=== PATIENT | male | born 1960 ===

== ENCOUNTER 2016-10-10 14:47 | Observation (INO) | payer MEDICAID ==
--- NOTE | 2016-10-10 15:33 | ED PDOC ---
HPI: Chest Pain Time Seen by Provider: 10/10/16 15:05 Chief Complaint (Nursing): Chest Pain Chief Complaint (Provider): Chest pain History Per: Patient History/Exam Limitations: no limitations Onset/Duration Of Symptoms: Days (5) Current Symptoms Are (Timing): Still Present Severity: Moderate Quality: "Pain" Additional History Per: Patient Additional Complaint(s): The pt is a 56yo male with PMHx of DM, presents to the ED for evaluation of gradual onset chest pain, persistent for the past 5 days with some waxing and waning episodes. Pt reports the pain is located primarily on his left chest but at times radiates to his back. He reports noticing his pain worsens when getting up from a kneeling, head down position after he is done with his prayers. pt denies any nausea, lightheadedness, and fatigue. Additionally reports 15 mins [employer], pt sneezed after which his chest pain worsened. Pt additionally reports minor cough and rhinorrhea which he attributes to his seasonal allergies. Pt currently denies any other medical complaints. PCP: Dr. Dylan Conteh Past Medical History Reviewed: Historical Data, Nursing Documentation, Vital Signs Vital Signs: Last Vital Signs Temp 98.6 F 10/10/16 14:59 Pulse 85 10/10/16 14:59 Resp 18 10/10/16 14:59 BP 116/68 10/10/16 15:59 Pulse Ox 97 10/10/16 15:42 - Medical History PMH: No Chronic Diseases - Surgical History Surgical History: No Surg Hx - Family History Family History: States: Diabetes - Living Arrangements Living Arrangements: With Family - Social History Current smoker - smoking cessation education provided: No Alcohol: None Drugs: Denies - Home Medications Home Medications: Ambulatory Orders Medication Instructions Recorded Metformin Hydrochloride/Mary 1 tab PO BID 03/19/15 [Janumet 500 mg-50 mg] GlipiZIDE [Glucotrol] 1 tab PO DAILY 10/10/16 - Allergies Allergies/Adverse Reactions: Allergies Allergy/AdvReac Type Severity Reaction Status Date / Time No Known Allergies Allergy Verified 10/10/16 14:50 Review of Systems ROS Statement: Except As Marked, All Systems Reviewed And Found Negative Constitutional: Negative for: Other (fatigue) Cardiovascular: Positive for: Chest Pain Respiratory: Positive for: Cough Gastrointestinal: Negative for: Nausea Neurological: Negative for: Other (lightheadedness) Physical Exam - Reviewed Nursing Documentation Reviewed: Yes Vital Signs Reviewed: Yes - Physical Exam Appears: Positive for: Well, Non-toxic, No Acute Distress Head Exam: Positive for: ATRAUMATIC, NORMAL INSPECTION, NORMOCEPHALIC Skin: Positive for: Normal Color Eye Exam: Positive for: Normal appearance Neck: Positive for: Normal, Supple Cardiovascular/Chest: Positive for: Regular Rate, Rhythm. Negative for: Chest Non Tender (mild, reproducible left anterior chest wall tenderness.) Respiratory: Positive for: Normal Breath Sounds. Negative for: Respiratory Distress Gastrointestinal/Abdominal: Positive for: Normal Exam, Soft Back: Positive for: Normal Inspection Extremity: Positive for: Normal ROM Neurologic/Psych: Positive for: Alert, Oriented - Laboratory Results Result Diagrams: 10/10/16 15:20 10/10/16 15:20 - ECG O2 Sat by Pulse Oximetry: 97 (RA) Pulse Ox Interpretation: Normal Medical Decision Making Medical Decision Making: Time: 1515 Impression: Chest pain Pt with CP and CAD risk factors. Needs hospitalization for serial enzymes to r/ o ACS, pending ER workup Differential: ACS; PE; Costochondritis; pneumothroax; penumonia; dissection Plan: -- Bloodwork -- CXR -- Reassess Accession No. : [id number] Patient Name / ID : CALVIN CARREON / [id number] Exam Date : 10/10/2016 17:55:32 ( Approved ) Study Comment : Sex / Age : M / 56Y Creator : GILSON COATES Dictator : Pm Head Cook : Furnishings Conservator : GILSON COATES Approver2 : Report Date : 10/10/2016 18:30:00 My Comment : [facility] Division of Radiology [address] [place] [address] Tel. no. Patient Name: LAURI SIMPSON Pt. Address: [address] [place] [address] Rec #: [id number] [place] [address]: Gatito SANCHEZ, Maxine Scott Pt HOME Order Location: [facility]EL : 1960 Male Age: 56 Order #: [id number] Reason for exam: chest pain radiating to back CT Scan ANGIOGRAPHY DISECTION PROTOCOL Exam Date: 10/10/16 This imaging exam was performed at [facility] EXAM: CT Angiography Chest With Intravenous Contrast CLINICAL HISTORY: 56 years old, male; Signs and symptoms; Other: Cp to back; Angina; Additional info: Chest pain radiating to back TECHNIQUE: Axial computed tomographic angiography images of the chest with intravenous contrast using pulmonary embolism protocol. This CT exam was performed using one or more of the following dose reduction techniques: automated exposure control, adjustment of the mA and/or kV according to patient size, and/or use of iterative reconstruction technique. MIP reconstructed images were created and reviewed. Coronal and sagittal reformatted images were created and reviewed. CONTRAST: 100 mL of [id number] administered intravenously. COMPARISON: There are no prior studies for comparison. FINDINGS: Artifacts: Motion artifact degrades image quality. Heart, aorta and Pulmonary arteries: The heart is mildly enlarged. There is no pericardial effusion. Pulmonary vessels are unremarkable. Technique limits evaluation of peripheral pulmonary arteries.There is no aneurysm or dissection. There is perfusion of the 3 arch vessels. There are calcifications in the arch. Lungs and pleural spaces: Trachea and main bronchi are patent.There is no pneumothorax. There is no focal consolidation. There are no pleural effusions. There is minimal atelectasis and scarring at the lung bases. Mediastinum: There is fatty infiltration of the mediastinum. There is are no pathologically enlarged mediastinal or hilar nodes. Esophagus is unremarkable. Thyroid: Thyroid is unremarkable Bones/joints: There are degenerative changes in the osseus structures. Soft tissues: unremarkable . Upper abdomen: Refer to following report for abdominal findings IMPRESSION: Mild cardiomegaly and atherosclerotic disease, no thoracic aortic aneurysm or dissection Additional findings as described above. EXAM: CT Abdomen With Intravenous Contrast CLINICAL HISTORY: 56 years old, male; Signs and symptoms; Other: Cp to back; Angina; Additional info: Chest pain radiating to back TECHNIQUE: Axial computed tomography images of the abdomen with intravenous contrast. This CT exam was performed using one or more of the following dose reduction techniques: automated exposure control, adjustment of the mA and/or kV according to patient size, and/or use of iterative reconstruction technique. Coronal and sagittal reformatted images were created and reviewed. CONTRAST: 100 mL of [id number] administered intravenously. EXAM DATE/TIME: 10/10/2016 4:58 PM COMPARISON: There are no prior studies for comparison. FINDINGS: Lower thorax: Refer to prior report for chest findings Liver: There is fatty infiltration of the liver. Gallbladder and bile ducts: unremarkable Pancreas: unremarkable Spleen: unremarkable Adrenals: unremarkable Kidneys and ureters: unremarkable Stomach and bowel: The stomach is partially distended. Rotation is normal. There is no obstruction. Visualized colon is unremarkable. Ileocecal region is incompletely imaged. Appendix is incompletely imaged. There is scattered diverticulosis Appendix: See stomach and bowel Intraperitoneal space:There is no free air or free fluid. Bones/joints: There are degenerative changes in the osseus structures. Soft tissues: unremarkable Vasculature: Abdominal aorta is normal in course and caliber. There is perfusion of all major abdominal aortic branches. There is minimal atherosclerotic disease. Lymph nodes: There is no pathologic adenopathy. IMPRESSION: No abdominal aortic aneurysm or dissection; fatty liver Dictated By: Gilson Coates MD, MD Dictated Date/Time: 10/10/161829 Signed By: Gilson Coates MD Date Signed: 1829 Transcribed By: BOYD Transcribe Date/Time : 10/10/161829 FRANCES/STACI WILD pt findings and plan of care. [facility]. Pt with cp and risk factors for CAD, with radiologic evidence of CAD. Needs hospitalization for r/o ACS and card workup. Scribe Attestation: Documented by Cass Kowalski acting as a scribe for Maxine Mederos MD. Provider Attestation: All medical record entries made by the Scribe were at my direction and personally dictated by me. I have reviewed the chart and agree that the record accurately reflects my personal performance of the history, physical exam, medical decision making, and the department course for this patient. I have also personally directed, reviewed, and agree with the discharge instructions and disposition. Disposition - Clinical Impression Clinical Impression: Chest pain, Atherosclerosis Counseled Patient/Family Regarding: Studies Performed, Diagnosis, Need For Followup - Disposition Disposition Time: 15:30 Condition: GUARDED - Pt Status Changed To: Hospital Disposition Of: Observation - POA Present On Arrival: None
[2016-10-10 15:45] LABS: BASO # 0.1 K/uL (0.0-0.2); BASO % 0.8 % (0.0-2.0); EOS # 0.1 K/uL (0.0-0.7); EOS % 1.8 % (0.0-4.0); HEMATOCRIT 36.8 % (35.0-51.0); LYMPH # 1.5 K/uL (1.0-4.3); LYMPH % 25.1 % (20.0-40.0); MEAN CELL VOLUME 64.2 fl (80.0-94.0); MEAN CORPUSCULAR HEMOGLOBIN 19.7 pg (27.0-31.0); MEAN CORPUSCULAR HGB CONC 30.7 g/dL (33.0-37.0); MEAN PLATELET VOLUME 8.5 fl (7.2-11.7); MONO # 0.5 K/uL (0.0-0.8); MONO % 8.4 % (0.0-10.0); NEUT # 3.9 K/uL (1.8-7.0); NEUT % 63.9 % (50.0-75.0); NRBC % 0.1 % (0.0-0.0); WHITE BLOOD COUNT 6.1 K/uL (4.8-10.8)
--- NOTE | 2016-10-10 15:53 | RAD ---
HISTORY: chest pain COMPARISON: 03/19/2015 TECHNIQUE: Chest PA and lateral FINDINGS: LUNGS: No focal airspace opacity. PLEURA: No significant pleural effusion identified. No pneumothorax apparent. CARDIOVASCULAR: Normal. OSSEOUS STRUCTURES: No significant abnormalities. VISUALIZED UPPER ABDOMEN: Normal. OTHER FINDINGS: None. IMPRESSION: No focal airspace opacity.
[2016-10-10 16:12] LABS: PARTIAL THROMBOPLASTIN TIME 30.3 Seconds (25.6-37.1)
[2016-10-10 16:16] LABS: ALB/GLOB RATIO 1.6 (1.0-2.1); ALKALINE PHOSPHATASE 38 U/L (38-126); ALT/SGPT 30 U/L (21-72); AST/SGOT 33 U/L (17-59); BILIRUBIN,TOTAL 0.5 mg/dl (0.2-1.3); BLOOD UREA NITROGEN 15 mg/dl (9-20); CALCIUM 10.1 mg/dL (8.4-10.2); CARBON DIOXIDE 26 mmol/L (22-30); CHLORIDE 102 mmol/L (98-107); GFR AFRICAN-AMERICAN > 60; GLUCOSE,RANDOM 172 mg/dL (75-110); MAGNESIUM 1.9 MG/DL (1.6-2.3); PHOSPHOROUS 3.2 mg/dl (2.5-4.5); POTASSIUM 3.7 MMOL/L (3.6-5.0); SODIUM 142 mmol/l (132-148)
[2016-10-10] MEDS ORDERED: Iodixanol 320 MG/ML 100 ML BOTTLE IV ONE (17:28)
[2016-10-10] MEDS ORDERED: Sodium Chloride 0.9% 250 ML IV ONE (17:28)
--- NOTE | 2016-10-10 18:30 | CT ---
EXAM: CT Angiography Chest With Intravenous Contrast CLINICAL HISTORY: 56 years old, male; Signs and symptoms; Other: Cp to back; Angina; Additional info: Chest pain radiating to back TECHNIQUE: Axial computed tomographic angiography images of the chest with intravenous contrast using pulmonary embolism protocol. This CT exam was performed using one or more of the following dose reduction techniques: automated exposure control, adjustment of the mA and/or kV according to patient size, and/or use of iterative reconstruction technique. MIP reconstructed images were created and reviewed. Coronal and sagittal reformatted images were created and reviewed. CONTRAST: 100 mL of [id number] administered intravenously. COMPARISON: There are no prior studies for comparison. FINDINGS: Artifacts: Motion artifact degrades image quality. Heart, aorta and Pulmonary arteries: The heart is mildly enlarged. There is no pericardial effusion. Pulmonary vessels are unremarkable. Technique limits evaluation of peripheral pulmonary arteries.There is no aneurysm or dissection. There is perfusion of the 3 arch vessels. There are calcifications in the arch. Lungs and pleural spaces: Trachea and main bronchi are patent.There is no pneumothorax. There is no focal consolidation. There are no pleural effusions. There is minimal atelectasis and scarring at the lung bases. Mediastinum: There is fatty infiltration of the mediastinum. There is are no pathologically enlarged mediastinal or hilar nodes. Esophagus is unremarkable. Thyroid: Thyroid is unremarkable Bones/joints: There are degenerative changes in the osseus structures. Soft tissues: unremarkable . Upper abdomen: Refer to following report for abdominal findings IMPRESSION: Mild cardiomegaly and atherosclerotic disease, no thoracic aortic aneurysm or dissection Additional findings as described above. EXAM: CT Abdomen With Intravenous Contrast CLINICAL HISTORY: 56 years old, male; Signs and symptoms; Other: Cp to back; Angina; Additional info: Chest pain radiating to back TECHNIQUE: Axial computed tomography images of the abdomen with intravenous contrast. This CT exam was performed using one or more of the following dose reduction techniques: automated exposure control, adjustment of the mA and/or kV according to patient size, and/or use of iterative reconstruction technique. Coronal and sagittal reformatted images were created and reviewed. CONTRAST: 100 mL of [id number] administered intravenously. EXAM DATE/TIME: 10/10/2016 4:58 PM COMPARISON: There are no prior studies for comparison. FINDINGS: Lower thorax: Refer to prior report for chest findings Liver: There is fatty infiltration of the liver. Gallbladder and bile ducts: unremarkable Pancreas: unremarkable Spleen: unremarkable Adrenals: unremarkable Kidneys and ureters: unremarkable Stomach and bowel: The stomach is partially distended. Rotation is normal. There is no obstruction. Visualized colon is unremarkable. Ileocecal region is incompletely imaged. Appendix is incompletely imaged. There is scattered diverticulosis Appendix: See stomach and bowel Intraperitoneal space:There is no free air or free fluid. Bones/joints: There are degenerative changes in the osseus structures. Soft tissues: unremarkable Vasculature: Abdominal aorta is normal in course and caliber. There is perfusion of all major abdominal aortic branches. There is minimal atherosclerotic disease. Lymph nodes: There is no pathologic adenopathy. IMPRESSION: No abdominal aortic aneurysm or dissection; fatty liver
[2016-10-10] MEDS ORDERED: Nitroglycerin 2% 15 INCH/30 GM TUBE TOP STA (18:54)
[2016-10-10] MEDS: Insulin Regular 100 units/ml SC SCH (22:25)
[2016-10-11] MEDS: Insulin Regular 100 units/ml SC SCH ×3 (06:27→18:20)
--- NOTE | 2016-10-11 07:39 | CARD ---
APPROVED REPORT EKG Measurement Heart [id number] <Conclusion> Normal sinus rhythm Normal ECG
[2016-10-11] MEDS ORDERED: LOVASTATIN 5 MG PO SCH (09:00)
[2016-10-11] MEDS ORDERED: Enoxaparin 40 mg Syringe SC SCH (09:00)
[2016-10-11 11:05] LABS: THYROID STIMULATING HORMONE 0.98 mIU/ML (0.46-4.68)
[2016-10-11 12:25] VITALS: O2SAT 98
[2016-10-11 15:41] VITALS: BP 109/46; PULSE 77; RESP 18; TEMP 98.2
--- NOTE | 2016-10-11 15:54 | HP ---
CHIEF COMPLAINT: Chest pain. HISTORY OF PRESENT ILLNESS: This is a 56-year-old male who was having on and off chest pain for past few days, which was waxing and waning, did not get better, so patient was brought to Emergency Room and was admitted for further management. REVIEW OF SYSTEMS: Positive for chest pain mainly during change of position, mainly after the patien t started to get up from praying position. Review of systems otherwise is negative for headache, diz ziness, syncope, loss of consciousness, shortness of breath, nausea, vomiting, diarrhea, constipation , any new joint or extremity pain. Review of systems of all other organ systems is unremarkable. PAST MEDICAL HISTORY: Unremarkable except diabetes. PAST SURGICAL HISTORY: Unremarkable. PERSONAL HISTORY: The patient is nonsmoker, nondrinker, no substance abuse. MEDICATIONS: The patient is on Janumet. ALLERGIES: The patient is not allergic to any medication. FAMILY HISTORY: Significant for diabetes. PHYSICAL EXAMINATION: GENERAL: Well-built, well-nourished 56-year-old male in no acute distress. VITAL SIGNS: Temperature afebrile, pulse 77, respirations 18, blood pressure 119/66. HEENT: Pupils reacting to light. NECK: No JVD, no thyromegaly, no lymphadenopathy, no nystagmus. Normocephalic, atraumatic skull. HEART: S1, S2 normal, regular. No significant murmur, gallop or rub is heard. LUNGS: Shows good bilateral air entry. No rales or rhonchi. ABDOMEN: Soft, nontender, no organomegaly, no fluid. Bowel sounds are plus. EXTREMITIES: No edema, no calf swelling, no tenderness, no acute ischemia. CENTRAL NERVOUS SYSTEM: Essentially unchanged and there is no sign of any acute gross focal motor or sensory neurological deficit. DIAGNOSTIC DATA: Available diagnostic data reviewed include Accu-Cheks are 220, 129 and 222. Tropon in 2 sets are negative. Vitamin B12 level is 182. TSH level is 0.98. WBC 6.1, hemoglobin 11.3, hem atocrit 36.8, platelets 296. PT/INR is acceptable. Sodium 142, potassium 3.7, chloride 102, bicarb 26, BUN 15, creatinine 1.0. SMA-12 is unremarkable. ADMITTING IMPRESSION: Chest pain. Type 2 diabetes with hyperglycemia, vitamin B12 deficiency. PLAN: As ordered. Case and plan discussed with patient. Adriano Oleary MD cc: [id number] TT: 10/11/2016 15:54:15 cn
--- NOTE | 2016-10-11 16:50 | CP.PCM.CON ---
History of Present Illness - History of Present Illness History of Present Illness: Chest wall pain No evidence of ACS DM(II) B12 deficiency May go home and be managed as an out pt Adv: ASA 18mg OD as out pt. Stress test as out pt. Past Patient History - Past Medical History & Family History Past Medical History?: Yes - Past Social History Smoking Status: Never Smoked - CARDIAC Hx Cardiac Disorders: No - PULMONARY Hx Respiratory Disorders: No - NEUROLOGICAL Hx Neurological Disorder: No - HEENT Hx HEENT Problems: No - RENAL Hx Chronic Kidney Disease: No - ENDOCRINE/METABOLIC Hx Endocrine Disorders: Yes Hx Diabetes Mellitus Type 2: Yes - HEMATOLOGICAL/ONCOLOGICAL Hx Blood Disorders: No - INTEGUMENTARY Hx Dermatological Problems: No - MUSCULOSKELETAL/RHEUMATOLOGICAL Hx Musculoskeletal Disorders: No Hx Falls: No - GASTROINTESTINAL Hx Gastrointestinal Disorders: No - GENITOURINARY/GYNECOLOGICAL Hx Genitourinary Disorders: No - PSYCHIATRIC Hx Psychophysiologic Disorder: No Hx Substance Use: No - SURGICAL HISTORY Hx Surgeries: No - ANESTHESIA Hx Anesthesia: No Hx Anesthesia Reactions: No Hx Malignant Hyperthermia: No Meds Allergies/Adverse Reactions: Allergies Allergy/AdvReac Type Severity Reaction Status Date / Time No Known Allergies Allergy Verified 10/10/16 14:50 - Medications Medications: Current Medications Atorvastatin Calcium (Lipitor) 10 mg PO DAILY [facility] Last Admin: 10/11/16 09:33 Dose: 10 mg Cyanocobalamin (Vitamin B12 1000 Mcg/Ml Inj) 1,000 mcg IM DAILY [facility] Last Admin: 10/11/16 13:48 Dose: 1,000 mcg Cyanocobalamin (Vitamin B12 1000 Mcg/Ml Inj) 1,000 mcg IM DAILY [facility] Enalapril Maleate (Vasotec) 5 mg PO DAILY [facility] Last Admin: 10/11/16 09:33 Dose: 5 mg Enoxaparin Sodium (Lovenox) 40 mg SC DAILY [facility] PRN Reason: Protocol Last Admin: 10/11/16 09:34 Dose: 40 mg Ferrous Sulfate (Feosol) 325 mg PO DAILY [facility] Last Admin: 10/11/16 09:33 Dose: 325 mg Folic Acid (Folic Acid) 1 mg PO DAILY [facility] Last Admin: 10/11/16 09:33 Dose: 1 mg Glipizide (Glucotrol) 5 mg PO DAILY [facility] Last Admin: 10/11/16 09:33 Dose: 5 mg Insulin Human Regular (Humulin R) 0 units SC ACCU-CHECK [facility] PRN Reason: Protocol Last Admin: 10/11/16 13:23 Dose: Not Given Sitagliptin Phosphate (Januvia) 100 mg PO DAILY [facility] Last Admin: 10/11/16 09:33 Dose: 100 mg Results - Vital Signs Recent Vital Signs: Last Vital Signs Temp 98.2 F 10/11/16 15:40 Pulse 77 10/11/16 15:40 Resp 18 10/11/16 15:40 BP 109/46 L 10/11/16 15:40 Pulse Ox 98 10/11/16 15:40 - Labs Result Diagrams: 10/10/16 15:20 10/10/16 15:20 Labs: Laboratory Results - last 24 hr 10/10/16 10/10/16 10/11/16 21:24 23:34 05:16 POC Glucose (mg/dL) 220 H 129 H Troponin I < 0.0120 Vitamin B12 TSH 3rd Generation 10/11/16 10/11/16 10/11/16 07:35 07:35 10:56 POC Glucose (mg/dL) 222 H Troponin I < 0.0120 Vitamin B12 182 L TSH 3rd Generation 0.98 10/11/16 16:17 POC Glucose (mg/dL) 253 H Troponin I Vitamin B12 TSH 3rd Generation
--- NOTE | 2016-10-11 18:01 | CON ---
DATE: 10/11/2016 He is hospitalized under Dr. Oleary's care in room 417, bed 1. HISTORY OF PRESENT ILLNESS: This 56-year-old man, a diabetic for over 16 years, came into the hospit al after experiencing left pectoral ache while attempting to get up from a supine posture at the end of his prayers. Attempts to sit up from a prone position caused him left pectoral ache. While on hi s way to the hospital, an episode of sneezing also produced significant left pectoral pain. The suzanne ent is physically fairly active and can climb a couple of flights of stairs without experiencing any chest pain. He is not a smoker or hypertensive. He has never been hospitalized and has never had dennison rgery. Denies any symptoms of congestive cardiac failure. His mother is also diabetic, but nobody i n the family has had heart disease. PHYSICAL EXAMINATION: GENERAL: Shows a middle-aged pleasant man sitting in his bed, alert, awake, coherent. VITAL SIGNS: Afebrile with a pulse rate of 68 beats per minute, regular and a blood pressure of 134/ 74 mmHg. NECK: His jugular venous pressure was not elevated. EXTREMITIES: There was no edema of his lower extremity. The pedal pulses were well felt. There wer e no carotid bruits. Extremities were warm, nailbeds were pink. Central or peripheral cyanosis was not present. HEART: [place] was not palpable. There was no tenderness in the left pectoral area during this examina tion. The first and second heart sounds were normal. There was no murmur, no gallop. LUNGS: No rales. ABDOMEN: Soft. Liver and spleen were not palpable. LABORATORY DATA: Electrocardiogram showed sinus rhythm with a normal EKG pattern. Three sets of car diac enzymes were negative for any evidence of myocyte injury. His hemoglobin and hematocrit were 11 .3 grams and 36.8% respectively. His MCV was 64.2 only suggesting a microcytic picture, though his s nabil B12 level was only 182 pg/mL, which is markedly low. His liver profile and his BUN and creatini ne were normal. His electrolytes were normal. His TSH was normal. IMPRESSION: At this time is chest wall pain in a patient with diabetes mellitus over 16 years. No e vidence of acute coronary syndrome. A markedly low serum B12 level suggestive of B12 deficiency. Th e patient may be allowed to return home and be followed as an outpatient. In the meantime, I have in structed him to start taking a coated aspirin every day and I have recommended that he should undergo a stress test given the fact that he is a middle-aged diabetic for over 16 years. Also, his lipid p rofile should be checked as an outpatient. Andres Cook MD cc: [id number] TT: 10/11/2016 18:00:14 Confirmation # [id number] Dictation # [id number]
--- NOTE | 2016-10-12 16:30 | CARD ---
APPROVED REPORT EXAM: Two-dimensional and M-mode echocardiogram with Doppler and color Doppler. Other Information Quality : GoodRhythm : INDICATION Chest Pain 2D DIMENSIONS IVSd1.14 (0.7-1.1cm)LVDd4.08 (3.9-5.9cm) LVOT Diameter1.90 (1.8-2.4cm)PWd0.88 (0.7-1.1cm) IVSs1.34 (0.8-1.2cm)LVDs2.63 (2.5-4.0cm) FS (%) 35.5 %PWs1.34 (0.8-1.2cm) M-Mode DIMENSIONS Left Atrium (MM)3.83 (2.5-4.0cm)IVSd1.10 (0.7-1.1cm) Aortic Root2.80 (2.2-3.7cm)LVDd4.63 (4.0-5.6cm) Aortic Cusp Exc.1.73 (1.5-2.0cm)PWd1.03 (0.7-1.1cm) IVSs1.67 cmFS (%) 48 % LVDs2.40 (2.0-3.8cm)PWs1.73 cm Aortic Valve AoV Peak Svsachde454.4cm/sAoV VTI24.5cmAO Peak GR.5mmHg LVOT Peak Pbtakvlr246.1cm/sLVOT VTI23.52cmAO Mean GR.3mmHg JAYLA (VMAX)1.71gj9LQI (VTI)1.47cm2 Mitral Valve MV E Uwouqckb01.3cm/sMV DECEL [id number] A Dicayqhe99.5cm/s MV ODR98vvI/A ratio1.3MVA (PHT)5.46cm2 TDI Lateral E' Peak V10.10cm/sMedial E' Peak V8.23cm/sE/Lateral E'8.5 E/Medial E'10.5 Pulmonary Valve PV Peak Qxouumfg416.5cm/s Tricuspid Valve TR Peak Iktaxczo075iu/sRAP [id number] Peak Gr.5mmHg [id number] LEFT VENTRICLE The left ventricle is normal size. There is normal left ventricular wall thickness. The left ventricular function is normal. The left ventricular ejection fraction is within the normal range. The Ejection Fraction is 60-65%. There is normal LV segmental wall motion. The left ventricular diastolic function is normal. No left ventricle thrombus noted on this study. There is no mass noted in the left ventricle. RIGHT VENTRICLE The right ventricle is normal size. There is normal right ventricular wall thickness. The right ventricular systolic function is normal. ATRIA The left atrium size is normal. The right atrium size is normal. The interatrial septum is intact with no evidence for an atrial septal defect. AORTIC VALVE The aortic valve is normal in structure and function. No aortic regurgitation is present. There is no aortic valvular stenosis. There is no aortic valvular vegetation. MITRAL VALVE The mitral valve is normal in structure and function. There is no evidence of mitral valve prolapse. There is no mitral valve stenosis. There is no mitral valve regurgitation noted. TRICUSPID VALVE The tricuspid valve is normal in structure and function. There is no tricuspid valve regurgitation noted. There is no tricuspid valve prolapse or vegetation. There is no tricuspid valve stenosis. PULMONIC VALVE The pulmonary valve is normal in structure and function. There is no pulmonic valvular regurgitation. There is no pulmonic valvular stenosis. GREAT VESSELS The aortic root is normal in size. The IVC is normal in size and collapses >50% with inspiration. PERICARDIAL EFFUSION The pericardium appears normal. There is no pleural effusion. <Conclusion> The left ventricle is normal size. The left ventricular function is normal. The left ventricular ejection fraction is within the normal range. The Ejection Fraction is 60-65%.
== END 2016-10-11 19:15 | disposition home or self-care (01) ==
LOC: H.ER 14:47 → H.ERHOLD 18:51 → H.TEL 21:36
PROVIDERS: ADMIT Internal Medicine; ATTEND Internal Medicine
DX: R07.89 Other chest pain (principal); E11.65 Type 2 diabetes mellitus with hyperglycemia; E53.8 Deficiency of other specified B group vitamins